=== PATIENT | male | born 2000 | race Caucasian/White ===

== ENCOUNTER 2024-10-31 16:36 | Emergency (ER) | payer OTHER, SELFPAY ==
[2024-10-31 16:38] VITALS: BP 134/74
[2024-10-31 16:41] VITALS: BP 134/74
[2024-10-31 16:47] VITALS: BMI 22.4
[2024-10-31 17:00] VITALS: BP 131/93
[2024-10-31 18:00] VITALS: BP 141/83
[2024-10-31 18:04] LABS: Hematocrit 43.4 % (39.0-52.0); Hemoglobin 14.5 g/dL (13.0-18.0); Mean Corp Hgb Conc. 33.4 g/dL (33.0-37.0); Mean Corpuscular Volume 83.1 fL (80.0-94.0); Nucleated Red Blood Cells % 0.2 % (-); Platelet Count 237 10^3/uL (130-400); Red Cell Dist. Width 13.1 % (11.5-14.5)
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
[2024-10-31] MEDS: NSS 1000 IV (18:22)
[2024-10-31 18:32] LABS: AST (SGOT) 25 U/L (17-59); Albumin 5.6 g/dl (3.5-5.0); Alkaline Phosphatase 61 U/L (38-126); Blood Urea Nitrogen 16 mg/dl (9-20); Calcium 10.4 mg/dl (8.4-10.2); Carbon Dioxide 17 mmol/L (22-30); Chloride 106 mmol/L (98-107); Estimated Creatinine Clearance 119 ml/min; Glucose 97 mg/dl (70-99); Potassium 4.4 mmol/L (3.5-5.1); Sodium 142 mmol/L (135-145); Total Protein 8.3 g/dl (6.3-8.2); eGFR > 60.00
[2024-10-31 19:03] LABS: Acetaminophen < 10 ug/ml (10-30); Salicylate < 1.0 mg/dl (2.0-20.0)
[2024-10-31 19:10] LABS: ALT (SGPT) < 10 U/L (0-50)
== END 2024-10-31 20:18 | disposition home or self-care (01) ==
LOC: EMR 16:36
PROVIDERS: EMERGENCY PHYSICIAN Emergency Medicine
DX: R56.9 Unspecified convulsions (principal); R51.9 Headache, unspecified; F17.210 Nicotine dependence, cigarettes, uncomplicated
CPT/HCPCS: 96360; 99284; 96361; 70450; 71046; 80053; 80143; 80179; 80306; 82077; 82550; 85025; 93005

== ENCOUNTER 2024-11-13 09:53 | Emergency (ER) | payer OTHER, SELFPAY ==
[2024-11-13 09:58] VITALS: BP 135/116; BMI 22.6
[2024-11-13 10:03] VITALS: BP 135/116
[2024-11-13 10:05] VITALS: BP 148/116
[2024-11-13 10:27] LABS: Hematocrit 44.3 % (39.0-52.0); Hemoglobin 14.6 g/dL (13.0-18.0); Mean Corp Hgb Conc. 33.0 g/dL (33.0-37.0); Mean Corpuscular Volume 83.6 fL (80.0-94.0); Nucleated Red Blood Cells % 0 % (-); Platelet Count 205 10^3/uL (130-400); Red Cell Dist. Width 12.8 % (11.5-14.5)
[2024-11-13 10:31] VITALS: BP 126/77
[2024-11-13 10:49] LABS: ALT (SGPT) 17 U/L (0-50); AST (SGOT) 23 U/L (17-59); Albumin 5.2 g/dl (3.5-5.0); Alkaline Phosphatase 59 U/L (38-126); Blood Urea Nitrogen 16 mg/dl (9-20); Calcium 10.0 mg/dl (8.4-10.2); Carbon Dioxide 22 mmol/L (22-30); Chloride 105 mmol/L (98-107); Estimated Creatinine Clearance 113 ml/min; Glucose 112 mg/dl (70-99); Potassium 4.5 mmol/L (3.5-5.1); Sodium 138 mmol/L (135-145); Total Protein 7.8 g/dl (6.3-8.2); eGFR > 60.00
[2024-11-13 11:00] VITALS: BP 125/61
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
[2024-11-13] MEDS: KEPPRA 1000 MG IV (11:30)
== END 2024-11-13 12:16 | disposition home or self-care (01) ==
LOC: EMR 09:53
PROVIDERS: EMERGENCY PHYSICIAN Student in an Organized Health Care Education/Training Program
DX: R56.9 Unspecified convulsions (principal); F12.90 Cannabis use, unspecified, uncomplicated
CPT/HCPCS: 96374; 99284; 80053; 85025; 93005

== ENCOUNTER → 2024-12-22 07:12 | Outpatient (REF) | payer OTHER, SELFPAY ==
--- NOTE | 2024-12-22 18:06 | EEGC.RPT ---
Continuous EEG Report
Recording
Start Date of Data Reviewed: 12/22/24
End Date of Data Reviewed: 12/22/24
Done with Video Recording: Yes
Electrocardiogram: Unremarkable
Report
�TECHNICAL REMARKS:��This is a technically satisfactory eighteen channel record employing 21 disc electrodes applied according to a measured international 10-20 electrode placement system.��There were no significant technical difficulties.��The
study was done on a [employer] System.
STUDY DURATION: 28 min, 40 sec
CLINICAL HISTORY: This is a 24-year-old man with seizure.� This study was requested to look for epileptiform abnormalities.
MEDICATIONS: Keppra
REPORT: �At the onset of the EEG, the patient is awake. The background activity consists of 11-12 Hz, persistent, posteriorly dominant, moderate amplitude, symmetric and rhythmic activity that is reactive to eye-opening. Anteriorly, it consists of a
mixture of low voltage indeterminate activity and 20-25 Hz, persistent, low amplitude, symmetric and rhythmic activity.� Stepwise intermittent photic stimulation (1-31 Hz) and hyperventilation (2 min, good effort) do not induce any abnormalities.
Hyperventilation was not performed. Drowsiness is characterized by low amplitude mixed frequency activity, decreased eye blinking, and muscle artifact.
�
�IMPRESSION: �This is a normal awake and drowsy EEG. There is no evidence of focal slowing or epileptiform activity.� A normal EEG does not rule out epilepsy. If the clinical picture warrants, a sleep-deprived awake and sleep record may be helpful.
== END ==
LOC: EEG 07:12
PROVIDERS: ATTENDING PHYSICIAN Nurse Practitioner Family
DX: G40.909 Epilepsy, unspecified, not intractable, without status epilepticus (principal)
CPT/HCPCS: 95816

== ENCOUNTER → 2025-02-14 14:56 | Outpatient (REF) | payer OTHER, SELFPAY | LOC: MRI 3T 14:56 | PROVIDERS: ATTENDING PHYSICIAN Nurse Practitioner Family | DX: G40.909 Epilepsy, unspecified, not intractable, without status epilepticus (principal) | CPT/HCPCS: 70553; A9575 ==